=== PATIENT | male | born 1950 | race Caucasian/White ===

== ENCOUNTER 2016-11-27 07:10 | Emergency (ER) | payer OTHER, MEDICAID ==
[2016-11-27 07:21] VITALS: RESP 14; O2SAT 94
--- NOTE | 2016-11-27 07:42 | EDPHY ---
H & P Time Seen by Provider: 11/27/16 07:27 HPI/ROS: CHIEF COMPLAINT: Altered HISTORY OF PRESENT ILLNESS: The patient is a 66-year-old male who is brought to the emergency department by EMS. Per EMS the patient was found down. He was mildly confused. He was placed in a ambulance and became combative. He needs to be restrained. On my evaluation of the patient he has no complaints. He denies significant alcohol use last night. He denies drug use. Patient reports having an old stroke and at baseline he has difficult with gait. He normally uses a cane. He does not currently no rales cane is. REVIEW OF SYSTEMS: My complete review of systems is negative except as mentioned in the HPI. Past Medical/Surgical History: Includes hypertension, CVA, diabetes, hyperlipidemia, bipolar disorder, hypoxia Social History: Homeless Smoking Status: Current every day smoker Physical Exam: Vitals noted GENERAL: No acute distress, alert. HEENT: Eyes normal to inspection, normal pharynx, no signs of dehydration. NECK: No thyromegaly, no lymphadenopathy, supple. RESPIRATORY: Clear to auscultation bilaterally, no rales, rhonchi or wheezing. CVS: Regular rate and rhythm, no rubs, murmurs, or gallops. ABDOMEN: Soft, nontender, nondistended, no organomegaly. BACK: Normal to inspection, no CVA tenderness. SKIN: Normal color, no rash, warm, dry. No pallor. EXTREMITIES: No pedal edema, no calf tenderness, no Homans sign or cords, no joint swelling. NEURO/PSYCH: Alert and oriented x3, normal mood and affect, residual left- sided weakness. Constitutional: Initial Vital Signs Temperature (C) 36.9 C 11/27/16 07:17 Heart Rate 89 11/27/16 07:17 Respiratory Rate 14 11/27/16 07:17 Blood Pressure 121/104 H 11/27/16 07:17 O2 Sat (%) 94 11/27/16 07:17 O2 Delivery Mode Room Air Allergies/Adverse Reactions: No Known Allergies Allergy (Verified 11/27/16 07:16) Home Medications: Medication Instructions Recorded metFORMIN HCL [Glucophage 500 mg 250 mg PO BID 01/06/14 (*)] Aspirin [Aspirin 325 mg (*)] 325 mg PO DAILY #30 tab 02/01/14 Atorvastatin Calcium [Lipitor 40 40 mg PO DAILY #30 tab 02/01/14 mg (*)] Enoxaparin [Lovenox 40 MG (*)] 40 mg SC DAILY #0 syr 02/01/14 Sennosides/Docusate Sodium 1 - 2 tab PO BID PRN #30 tab 02/01/14 [Senokot-S] Medical Decision Making ED Course/Re-evaluation: In the emergency department I took report from the wooden furniture polisher. This time the patient is without complaint. Attempt to ambulate the patient in the emergency department. He normally has his backache which was not brought with him. EMS was contacted to help find his bag. Differential Diagnosis: My differential includes but is not limited to alcohol abuse, drug abuse, CVA, electrolyte abnormality, sugar abnormality, hypertension Departure - Departure Disposition: Home, Routine, Self-Care Clinical Impression: Gait disturbance, post-stroke Alcoholic intoxication Qualifiers: Complication of substance-induced condition: uncomplicated Qualified Code(s): F10.920 - Alcohol use, unspecified with intoxication, uncomplicated Condition: Good Instructions: Alcohol Use Disorder (ED) Additional Instructions: Return with increasing pain, weakness, numbness, headache, or any other concerns. Referrals: Patient,NotPresent [Primary Care Provider] - As per Instructions
[2016-11-27 08:19] VITALS: BP 130/97; PULSE 80; TEMP 97.9
== END 2016-11-27 08:18 | disposition home or self-care (01) ==
LOC: EDUNIT#
DX: R26.9 Unspecified abnormalities of gait and mobility (principal); F10.920 Alcohol use, unspecified with intoxication, uncomplicated; I10 Essential (primary) hypertension; E11.9 Type 2 diabetes mellitus without complications; F17.200 Nicotine dependence, unspecified, uncomplicated; Z79.82 Long term (current) use of aspirin; Z86.73 Personal history of transient ischemic attack (TIA), and cerebral infarction without residual deficits; Z79.84 Long term (current) use of oral hypoglycemic drugs

== ENCOUNTER 2016-11-27 09:42 | Emergency (ER) | payer OTHER, MEDICAID ==
--- NOTE | 2016-11-27 10:07 | EDPHY ---
H & P Time Seen by Provider: 11/27/16 09:55 HPI/ROS: CHIEF COMPLAINT: Balance issues HISTORY OF PRESENT ILLNESS: Patient is a 66-year-old male who returns to the emergency department from the [facility]. He was discharged from the emergency department earlier today. Please refer to my note. On my initial evaluation patient stated he had not been drinking. I discharged him from the emergency department, and due to some confusion, the nurse sent him to the [facility]. Once he arrived to the [facility] he was complaining of issues with his balance and was found to have a negative Breathalyzer. He has some instability secondary to his stroke. He denies new gait issues. He normally uses a cane. He has no new headache. Denies neck pain. He chronically has left-sided weakness and this is unchanged. No nausea or vomiting. Patient states that he did have a fall and struck his left elbow yesterday. He has full range of motion but mild discomfort at the elbow. REVIEW OF SYSTEMS: My complete review of systems is negative except as mentioned in the HPI. Past Medical/Surgical History: Includes hypertension, CVA, alcohol abuse Smoking Status: Current every day smoker Physical Exam: Vitals noted GENERAL: Well-appearing, in no acute distress, alert. HEENT: Eyes normal to inspection, normal pharynx, no signs of dehydration. No head trauma. NECK: No thyromegaly, no lymphadenopathy, supple. C-spine nontender. RESPIRATORY: Clear to auscultation bilaterally, no rales, rhonchi or wheezing. CVS: Regular rate and rhythm, no rubs, murmurs, or gallops. ABDOMEN: Soft, nontender, nondistended, no organomegaly. BACK: Normal to inspection, no CVA tenderness. Spine nontender SKIN: Normal color, no rash, warm, dry. No pallor. EXTREMITIES: The patient has long sleeve shirt removed. He had mild tenderness palpation over his left olecranon process. There is minimal swelling. He has full range of motion of his left upper extremity. Neurovascularly intact distally. (The elbow injury was not mentioned earlier this morning no was not found on exam previously) NEURO/PSYCH: Alert and oriented x3, normal mood and affect, mild left-sided weakness Constitutional: Initial Vital Signs Temperature (C) 36.5 C 11/27/16 09:47 Heart Rate 105 H 11/27/16 09:47 Blood Pressure 120/73 11/27/16 09:47 O2 Sat (%) 93 11/27/16 09:47 O2 Delivery Mode Room Air Allergies/Adverse Reactions: No Known Allergies Allergy (Verified 11/27/16 07:16) Home Medications: Medication Instructions Recorded metFORMIN HCL [Glucophage 500 mg 250 mg PO BID 01/06/14 (*)] Aspirin [Aspirin 325 mg (*)] 325 mg PO DAILY #30 tab 02/01/14 Atorvastatin Calcium [Lipitor 40 40 mg PO DAILY #30 tab 02/01/14 mg (*)] Enoxaparin [Lovenox 40 MG (*)] 40 mg SC DAILY #0 syr 02/01/14 Medical Decision Making - Diagnostics Imaging Results: Imaging Impressions Elbow X-Ray 11/27/16 10:00 Impression: Dorsal soft tissue swelling. ED Course/Re-evaluation: In the emergency department I discussed the plan with the patient. X-ray of his left elbow was ordered. I do not feel the patient needs head CT imaging at this time. Left elbow x-ray: Please refer the dictated report. No fracture dislocation. Dorsal soft tissue swelling. I discussed the results with the patient. I answered all his questions. Patient was given warnings prior to leaving. He will return with worsening symptoms. He was offered a cane but did not want 1. Differential Diagnosis: My differential includes but is not limited to contusion, fracture, subarachnoid hemorrhage, subdural hematoma, epidural hematoma, spinal injury Departure - Departure Disposition: Home, Routine, Self-Care Clinical Impression: Gait disturbance, post-stroke Contusion of elbow, left Qualifiers: Encounter type: initial encounter Qualified Code(s): S50.02XA - Contusion of left elbow, initial encounter Condition: Good Instructions: Contusion in Adults (ED) Referrals: [facility],. [Clinic] - 5-7 days, call for appt.
[2016-11-27 11:25] VITALS: BP 136/94; PULSE 70; RESP 14; TEMP 98.4; O2SAT 94
== END 2016-11-27 11:37 | disposition home or self-care (01) ==
DX: M79.81 Nontraumatic hematoma of soft tissue (principal); R26.9 Unspecified abnormalities of gait and mobility; I10 Essential (primary) hypertension; F17.200 Nicotine dependence, unspecified, uncomplicated; Z79.82 Long term (current) use of aspirin; Z86.73 Personal history of transient ischemic attack (TIA), and cerebral infarction without residual deficits

== ENCOUNTER 2016-11-29 12:38 | Emergency (ER) | payer OTHER, MEDICAID ==
--- NOTE | 2016-11-29 13:01 | EDPHY ---
H & P Time Seen by Provider: 11/29/16 12:50 HPI/ROS: CHIEF COMPLAINT: History of fall, left shoulder pain HISTORY OF PRESENT ILLNESS: 66-year-old male presents to the emergency department by ambulance after he had a fall. The patient states that he fell last night and is not having pain in his left shoulder. He is right-hand dominant. He denies chest pain or difficulty breathing. Denies abdominal pain. He denies neck or back pain. He is having some pain in his left shoulder. Denies pain in his left elbow or wrist. He is also complaining of pain in his left hip. Denies pain in his left knee or ankle. Denies symptoms in the right lower extremity or in his right upper extremity. Patient is status post CVA and has left-sided deficits. He walks unassisted. REVIEW OF SYSTEMS: Constitutional: No fever, no chills. Eyes: No double or blurry vision. ENT: No sore throat. Respiratory: No cough, no shortness of breath. Cardiac: No chest pain. Gastrointestinal: No abdominal pain, vomiting or diarrhea. Genitourinary: No dysuria. Musculoskeletal: No neck or back pain. Skin: No rashes. Neurological: No headache. Past Medical/Surgical History: CVA with left-sided deficits Social History: Homeless Smoking Status: Current every day smoker Physical Exam: General Appearance: Alert, no distress. No visible signs of trauma to his head. He is mentating normally and answering questions appropriately. Eyes: Pupils equal and round. Extraocular motions are all intact. ENT: Mouth: Mucous membranes moist. Respiratory: No wheezing, rhonchi, or rales, lungs are clear to auscultation. Cardiovascular: Regular rate and rhythm. Gastrointestinal: Abdomen is soft and nontender, no masses, no rebound or guarding, bowel sounds normal. Neurological: Alert and oriented x 3, cranial nerves II through XII grossly intact Skin: Warm and dry, no rashes. Musculoskeletal: Nontender to palpate along the cervical, thoracic or lumbar spine. Neck is supple. Extremities: Full range of motion and no peripheral edema. Palpable crepitus over the left clavicle. Nontender. Full range of motion of upper and lower extremities. Normal gait. Psychiatric: Patient is oriented X 3, there is no agitation. Constitutional: Initial Vital Signs Temperature (C) 36.6 C 11/29/16 13:10 Heart Rate 96 11/29/16 13:10 Respiratory Rate 18 11/29/16 13:10 Blood Pressure 147/100 H 11/29/16 13:10 O2 Sat (%) 94 11/29/16 13:10 O2 Delivery Mode Room Air Allergies/Adverse Reactions: No Known Allergies Allergy (Verified 11/27/16 07:16) Home Medications: Medication Instructions Recorded metFORMIN HCL [Glucophage 500 mg 250 mg PO BID 01/06/14 (*)] Aspirin [Aspirin 325 mg (*)] 325 mg PO DAILY #30 tab 02/01/14 Atorvastatin Calcium [Lipitor 40 40 mg PO DAILY #30 tab 02/01/14 mg (*)] Enoxaparin [Lovenox 40 MG (*)] 40 mg SC DAILY #0 syr 02/01/14 Medical Decision Making - Diagnostics Imaging Results: Imaging Impressions Clavicle X-Ray 11/29/16 13:01 Impression: 1. 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 2. Chronic calcific tendinitis seen above the left greater tuberosity. ED Course/Re-evaluation: 66-year-old male presents to the emergency department after she fell yesterday. He has palpable deformity to the left clavicle which is nontender. X-rays reveal old left clavicle fracture with nonunion. This was shown to the patient. The patient thinks that he probably injured his clavicle 6 years ago. The patient has no visible signs of trauma to his head. He is able to ambulate unassisted without difficulty. He is requesting to be discharged to [facility] because his physician is with [facility]. I explained to the patient that he has otherwise been medically cleared. We are waiting assistance from renal case manager to help discharge this patient and arrange appropriate follow-up. I do not think further imaging studies are indicated. His vital signs are stable. I do not think laboratory studies are indicated. Differential Diagnosis: Including but not limited to fracture, dislocation, contusion, sprain Departure - Departure Disposition: Home, Routine, Self-Care Clinical Impression: History of fall Fracture of left clavicle with nonunion Qualifiers: Encounter type: subsequent encounter Clavicle location: shaft Fracture type: closed Fracture alignment: displaced Qualified Code(s): S42.022K - Displaced fracture of shaft of left clavicle, subsequent encounter for fracture with nonunion Condition: Good Instructions: Clavicle Fracture (ED) Additional Instructions: X-rays of your left clavicle reveal an old clavicle fracture that never fully healed. You should follow up with orthopedic surgeon as discussed. Referrals: Qasim Min MD [Medical Doctor] - As per Instructions (Orthopedic surgeon on-call)
[2016-11-29 15:03] VITALS: BP 120/78; PULSE 88; RESP 20; TEMP 98.1; O2SAT 98
== END 2016-11-29 15:03 | disposition home or self-care (01) ==
LOC: EDUNIT#
DX: S42.022A Displaced fracture of shaft of left clavicle, initial encounter for closed fracture (principal); F17.200 Nicotine dependence, unspecified, uncomplicated; Z79.82 Long term (current) use of aspirin; Z86.73 Personal history of transient ischemic attack (TIA), and cerebral infarction without residual deficits; W18.39XA Other fall on same level, initial encounter

== ENCOUNTER 2016-12-07 13:39 | Inpatient (IN) | payer OTHER, MEDICAID ==
--- NOTE | 2016-12-07 14:34 | EDPHY ---
H & P Time Seen by Provider: 12/07/16 13:40 HPI/ROS: Chief complaint. Fall HPI. 66-year-old male here by EMS after falling out of his wheelchair and lying on the sidewalk. He complains of urinary frequency for 1 week. He has been out in the sun without sun protection the last few days and has sunburn and blisters on his legs abdomen and back for the last 2 days. For the last 2 days he has also had cough and congestion. Unknown fever. No shortness of breath and no fever. No abdominal pain vomiting or diarrhea. No injury from the fall from his wheelchair. Patient is an orally controlled diabetic and has been noncompliant with his medication of metformin. He denies drinking alcohol today. He did not strike his head or lose consciousness. He does not have neck pain. ROS Constitutional. Weakness Eyes. no problems with vision ENT. no sore throat, no nasal drainage Cardiovascular. no chest pain Respiratory. no shortness of breath, no cough Abdominal. no abdominal pain, no nausea/vomiting, no diarrhea . no problems urinating MS. no calf pain/swelling, no neck/back pain, no joint pain Skin. Sunburn rash with blistering on knees and ankles as well as back and left side abdomen Lymph. no swollen glands Neuro. Some difficulty walking and patient uses wheelchair though he is able to ambulate Past Medical/Surgical History: Past medical history is significant for collarbone fracture, CVA, diabetes, dyslipidemia, DVT Social History: Homeless, daily smoker, no alcohol Smoking Status: Current every day smoker Physical Exam: General Appearance: Alert well-developed male mild distress vital signs stable Eyes: Pupils equal and round no pallor or injection. ENT, Mouth: Mucous membranes are moist. Respiratory: No retractions. Diffuse inspiratory expiratory rhonchi Cardiovascular: Regular rate and rhythm. Gastrointestinal: Abdomen is soft and nontender, no masses, bowel sounds normal. Neurological: Awake and alert, sensory and motor exams grossly normal. Skin: Sunburn knees legs left abdomen and back with blistering. No evidence for infection however Musculoskeletal: Neck is supple nontender. Extremities symmetrical, full range of motion. Psychiatric: Patient is oriented X 3, there is no agitation. Constitutional: Initial Vital Signs Temperature (C) 36.9 C 12/07/16 13:47 Heart Rate 93 12/07/16 13:47 Respiratory Rate 20 12/07/16 13:47 Blood Pressure 138/75 H 12/07/16 13:47 O2 Sat (%) 93 12/07/16 13:47 O2 Delivery Mode Nasal Cannula O2 (L/minute) 2 Allergies/Adverse Reactions: No Known Allergies Allergy (Verified 11/27/16 07:16) Home Medications: Medication Instructions Recorded metFORMIN HCL [Glucophage 500 mg 250 mg PO BID 01/06/14 (*)] Aspirin [Aspirin 325 mg (*)] 325 mg PO DAILY #30 tab 02/01/14 Atorvastatin Calcium [Lipitor 40 40 mg PO DAILY #30 tab 02/01/14 mg (*)] Enoxaparin [Lovenox 40 MG (*)] 40 mg SC DAILY #0 syr 02/01/14 Medical Decision Making - Diagnostics Imaging Results: Imaging Impressions Chest X-Ray 12/07/16 14:30 Impression: 1. Increased interstitial prominence with possible left basilar consolidation, which could be related to bronchitis and pneumonia, aspiration, progressive interstitial lung disease, or other etiology. 2. Additional findings as above. Chest x-ray reviewed by me shows possible left lower lobe pneumonia Procedures: IV normal saline. Sepsis workup ED Course/Re-evaluation: Severe sepsis declared now. 2nd lactate is also Elevated at 2.5. Patient is given 30 milliliters/kilogram fluid bolus. IV Levaquin after cultures. I have consulted and discussed case with Dr. Kohler, hospitalist, who agrees to the admission Differential Diagnosis: Patient appears to both have pneumonia and urinary tract infection. He has sepsis and is being treated with fluids and antibiotics. He also has sunburn with blistering that does not appear to be infected. Critical Care Time: Critical care time exclusive procedures 45 minutes - Data Points Laboratory Results: Laboratory Results 12/07/16 14:47 12/07/16 14:47 12/07/16 12/07/16 12/07/16 17:05 17:00 14:47 WBC RBC Hgb Hct MCV MCH MCHC RDW Plt Count MPV Neut % (Auto) Lymph % (Auto) [place] % (Auto) Eos % (Auto) Baso % (Auto) Nucleat RBC Rel Count Absolute Neuts (auto) Absolute Lymphs (auto) Absolute Monos (auto) Absolute Eos (auto) Absolute Basos (auto) Absolute Nucleated RBC Immature Gran % Immature Gran # PT 13.9 SEC SEC (12.0-15.0) INR 1.08 (0.83-1.16) APTT 26.1 SEC SEC (23.0-38.0) VBG Lactic Acid 2.5 mmol/L H mmol/L (0.7-2.1) Sodium Potassium Chloride Carbon Dioxide Anion Gap BUN Creatinine Estimated GFR Glucose Calcium Total Bilirubin Urine Color YELLOW Urine Appearance HAZY Urine pH 7.0 (5.0-7.5) Ur Specific [place] 1.010 (1.002-1.030) Urine Protein NEGATIVE (NEGATIVE) Urine Ketones NEGATIVE (NEGATIVE) Urine Blood 1+ H (NEGATIVE) Urine Nitrate POSITIVE H (NEGATIVE) Urine Bilirubin NEGATIVE (NEGATIVE) Urine Urobilinogen NEGATIVE EU EU (0.2-1.0) Ur Leukocyte Esterase TRACE H (NEGATIVE) Urine RBC 3-5 /hpf H /hpf (0-3) Urine WBC 15-25 /hpf H /hpf (0-3) Ur Epithelial Cells NONE SEEN /lpf /lpf (NONE-1+) Urine Mucus TRACE /lpf /lpf (NONE-1+) Urine Glucose 1+ H (NEGATIVE) Ethyl Alcohol 12/07/16 12/07/16 12/07/16 14:47 14:47 14:47 WBC 11.21 10^3/uL H 10^3/uL (3.80-9.50) RBC 4.75 10^6/uL 10^6/uL (4.40-6.38) Hgb 14.3 g/dL g/dL (13.7-17.5) Hct 43.0 % % (40.0-51.0) MCV 90.5 fL fL (81.5-99.8) MCH 30.1 pg pg (27.9-34.1) MCHC 33.3 g/dL g/dL (32.4-36.7) RDW 14.2 % % (11.5-15.2) Plt Count 396 10^3/uL 10^3/uL (150-400) MPV 10.1 fL fL (8.7-11.7) Neut % (Auto) 72.8 % % (39.3-74.2) Lymph % (Auto) 17.2 % % (15.0-45.0) [place] % (Auto) 7.9 % % (4.5-13.0) Eos % (Auto) 1.2 % % (0.6-7.6) Baso % (Auto) 0.5 % % (0.3-1.7) Nucleat RBC Rel Count 0.0 % % (0.0-0.2) Absolute Neuts (auto) 8.14 10^3/uL H 10^3/uL (1.70-6.50) Absolute Lymphs (auto) 1.93 10^3/uL 10^3/uL (1.00-3.00) Absolute Monos (auto) 0.89 10^3/uL H 10^3/uL (0.30-0.80) Absolute Eos (auto) 0.14 10^3/uL 10^3/uL (0.03-0.40) Absolute Basos (auto) 0.06 10^3/uL 10^3/uL (0.02-0.10) Absolute Nucleated RBC 0.00 10^3/uL 10^3/uL (0-0.01) Immature Gran % 0.4 % % (0.0-1.1) Immature Gran # 0.05 10^3/uL 10^3/uL (0.00-0.10) PT INR APTT VBG Lactic Acid 2.2 mmol/L H mmol/L (0.7-2.1) Sodium 139 mEq/L mEq/L (134-144) Potassium 4.2 mEq/L mEq/L (3.5-5.2) Chloride 106 mEq/L mEq/L (97-110) Carbon Dioxide 24 mEq/l mEq/l (22-31) Anion Gap 9 mEq/L mEq/L (8-16) BUN 10 mg/dL mg/dL (7-23) Creatinine 0.8 mg/dL mg/dL (0.7-1.3) Estimated GFR > 60 Glucose 150 mg/dL H mg/dL (70-100) Calcium 9.7 mg/dL mg/dL (8.5-10.4) Total Bilirubin 0.7 mg/dL mg/dL (0.1-1.4) Urine Color Urine Appearance Urine pH Ur Specific [place] Urine Protein Urine Ketones Urine Blood Urine Nitrate Urine Bilirubin Urine Urobilinogen Ur Leukocyte Esterase Urine RBC Urine WBC Ur Epithelial Cells Urine Mucus Urine Glucose Ethyl Alcohol < 10 mg/dL mg/dL (0-10) Medications Given: Discontinued Medications Sodium Chloride (Ns) 2,900 mls @ 5,800 mls/hr 30 ml/kg infuse over 30 min ( 2900 ml) IV EDNOW ONE PRN Reason: Protocol Stop: 12/07/16 15:56 Last Admin: 12/07/16 15:35 Dose: 2,900 mls Departure - Departure Disposition: [facility] In[facility] Acute Clinical Impression: Sepsis Qualifiers: Sepsis type: sepsis due to unspecified organism Qualified Code(s): A41.9 - Sepsis, unspecified organism Pneumonia Qualifiers: Pneumonia type: due to unspecified organism Laterality: left Lung location: lower lobe of lung Qualified Code(s): J18.1 - Lobar pneumonia, unspecified organism Urinary tract infection Qualifiers: Urinary tract infection type: acute cystitis Hematuria presence: without hematuria Qualified Code(s): N30.00 - Acute cystitis without hematuria Condition: Fair Referrals: Patient,NotPresent [Primary Care Provider] - As per Instructions
[2016-12-07 15:05] LABS: % IMMATURE GRANULYOCYTES 0.4 % (0.0-1.1); ABSOLUTE IMMATURE GRANULOCYTES 0.05 10^3/uL (0.00-0.10); ADD DIFF? NO; ADD MORPH? NO; ADD SCAN? NO; ATYPICAL LYMPHOCYTE FLAG 20 (0-99); FRAGMENT RBC FLAG 0 (0-99); HEMOGLOBIN 14.3 g/dL (13.7-17.5); LEFT SHIFT FLG 0 (0-99); LIPEMIA HEMOLYSIS FLAG 80 (0-99); MEAN CELL HEMOGLOBIN 30.1 pg (27.9-34.1); MEAN CELL HEMOGLOBIN CONCENTR. 33.3 g/dL (32.4-36.7); MEAN CELL VOLUME 90.5 fL (81.5-99.8); MEAN PLATELET VOLUME 10.1 fL (8.7-11.7); PLATELET CLUMPS FLAG 0 (0-99); PLATELET COUNT 396 10^3/uL (150-400); RED BLOOD CELL COUNT 4.75 10^6/uL (4.40-6.38); RED CELL DISTRIBUTION WIDTH 14.2 % (11.5-15.2)
[2016-12-07 15:16] LABS: ANION GAP 9 mEq/L (8-16); BILIRUBIN,TOTAL 0.7 mg/dL (0.1-1.4); CALCIUM 9.7 mg/dL (8.5-10.4); CARBON DIOXIDE 24 mEq/l (22-31); CHLORIDE 106 mEq/L (97-110); CREATININE 0.8 mg/dL (0.7-1.3); ETHANOL SERUM < 10 mg/dL (0-10); GLOMERULAR FILTRATION RATE > 60; GLUCOSE 150 mg/dL (70-100); POTASSIUM 4.2 mEq/L (3.5-5.2); SODIUM 139 mEq/L (134-144)
[2016-12-07 15:17] LABS: INR 1.08 (0.83-1.16); PROTIME(PATIENT) 13.9 SEC (12.0-15.0)
[2016-12-07 15:18] LABS: APTT 26.1 SEC (23.0-38.0)
[2016-12-07] MEDS ORDERED: NS 2,900 ML IV ONE (15:27)
[2016-12-07 15:57] LABS: LACGHOST ORDER
[2016-12-07 17:19] LABS: COLOR YELLOW; LEUKOCYTE ESTERASE,URINE TRACE (NEGATIVE); NITRITE,URINE POSITIVE (NEGATIVE)
[2016-12-07 17:24] LABS: MUCUS TRACE /lpf (NONE-1+); WBC,URINE 15-25 /hpf (0-3)
[2016-12-07 18:10] LABS: LACGHOST ORDER
[2016-12-07] MEDS ORDERED: ALBUTEROL 3 ML DEYVIAL IH PRN (19:24)
[2016-12-07] MEDS ORDERED: LORazepam 0.5 MG TAB PO PRN (19:24)
[2016-12-07] MEDS ORDERED: ONDANSETRON 4 MG/2 ML VIAL IVP PRN (19:24)
[2016-12-07] MEDS ORDERED: ONDANSETRON DISINTEGRATING 4 MG TAB PO PRN (19:24)
[2016-12-07] MEDS ORDERED: D50W 25 GM/50 ML SYR IVP PRN (19:28)
[2016-12-07] MEDS ORDERED: NS 1,000 ML IV SCH (19:30)
[2016-12-07] MEDS: IPRATROPIUM/ALBUTEROL 3 ML DEYVIAL IH SCH (20:12)
[2016-12-07] MEDS ORDERED: ALOE VERA TP PRN (20:29)
[2016-12-07 21:48] LABS: TROPONIN I < 0.012 ng/mL (0-0.034)
--- NOTE | 2016-12-07 21:50 | GHP ---
[f rep st] HISTORY AND PHYSICAL DATE OF ADMISSION: 12/07/2016 CHIEF COMPLAINT: Found down. HISTORY: This is a 66-year-old, homeless male, who has a past medical history of hypertension, diab etes, and presume COPD. He is also wheelchair-bound, status post stroke, who was found on the sidew alk outside of [employer], noted to be quite somnolent and with significant blistering sunburn wounds. At the time of my evaluation, the patient is arousable, but quite somnolent still. The majority of this history is therefore obtained by chart review and discussion with ER doc. Apparently, he has b een having cough and shortness of breath for the last several days. He did not think he had a fever . It sounds as if he just fell out of his wheelchair, but without any loss of consciousness or prec eding symptoms. He was unable to get up, however, and was lying on the sidewalk until EMS arrived. He has also been complaining of urinary frequency and urgency. He also noted to the ER that he has been out in the sun, and has not had any sun protection for the last 2 days. PAST MEDICAL HISTORY: 1. 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 2. Hypertension. 3. Diabetes, previously poorly controlled. 4. Presumed COPD. 5. Chronic hypoxia. 6. 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 7. Hyperlipidemia. SOCIAL HISTORY: The patient is a daily smoker. He has stated that he no longer drinks, though he h as had a previous issue with heavy drinking. He is homeless. FAMILY HISTORY: This is reviewed in the chart and is noncontributory. REVIEW OF SYSTEMS: This is unobtainable secondary to patient's somnolence. MEDICATIONS: Metformin. ALLERGIES: No known drug allergies. PHYSICAL EXAMINATION: VITAL SIGNS: BP 144/84, heart rate 93, respiratory rate 26, O2 sats 98% on 2 L, temperature is 37.4. GENERAL APPEARANCE: This is a well-developed male. He is very somnolent, though arousable. EYES: Anicteric. Sclerae are injected. HENT: Poor dentition. Moist mucous m embranes. CARDIOVASCULAR: Regular rate and rhythm. No MRG. PULMONARY: CTA bilaterally to anteri or exam. He was noted to have significant apneic events while I was in the room with him up to 5 se conds, consistent with MARY. ABDOMEN: Obese, soft, nontender, nondistended. EXTREMITIES: No clubb ing, cyanosis, or edema. SKIN: The patient is sunburned with scattered blistering wounds on his lo wer extremities and apparently his back, though I was not able to visualize his back. There is no e vidence of superimposed infection. NEURO/PSYCH: Again, the patient is quite somnolent. However, donovan chapa has been awake and interactive with staff, and is arousable to my exam, though he remains quite so mnolent, falls asleep rather quickly. He, otherwise, appears to be nonfocal neurologically. LABORATORY STUDIES: White blood cell count 11.2, coags are normal, lactic acid 2.2, then 2.5. Chem istry notable for glucose of 150. Urinalysis shows 1+ blood, positive for nitrates, leuk esterase, and 15-25 white blood cells. U tox is negative for alcohol. Chest x-ray showing a left basilar consolidation, question bronchitis, pneumonia aspiration, progres sive interstitial lung disease, or other etiology. That was personally reviewed and interpreted. ASSESSMENT/PLAN: This is a 66-year-old man who presents after falling out of his wheelchair, and un able to get up on the sidewalk outside [employer], with blistering sunburn wounds, and evidence of likel y left lower lobe pneumonia and urinary tract infection, with significant somnolence at the time of my evaluation. 1. Acute encephalopathy. Again, the patient is really minimally arousable at the time of my evalua tion. He did have a fall from wheelchair without any reported injuries, but given my inability real ly to arouse him, I feel the most prudent to obtain a head CT to rule out acute bleed. He does have a history of stroke. Again, he does not appear to be focal neurologically, but difficult evaluatio n. 2. Left lower lobe pneumonia. The chest x-ray was limited by poor inspiratory effort, though he do es appear to have a left basilar consolidation. He will be started on ceftriaxone and azithromycin. Blood cultures have been drawn and are pending. He is hemodynamically stable. 3. Urinary tract infection. He does have evidence of UTI on urinalysis. Urine cultures are pendin g. He will be covered for this with ceftriaxone. 4. Elevated lactate. He has had 2 draws now that have not improved, though they are both minimally elevated. Again, he is hemodynamically stable, but query other reason for more chronic elevation i n lactate level. We will check 1 more, and if no change despite adequate fluid resuscitation and ot her markers being normal, I will stop checking at that point. 5. Diabetes, for which he is only on metformin. Glucose on arrival of 150. We will treat with juli ding scale and obtain a hemoglobin A1c. 6. Leukocytosis without other real signs or symptoms of SIRS. Again, in the setting of presumed in fection as above. 7. Sunburns. The patient does have diffuse sunburns and scattered blistering wounds. We will ask for wound care consult. We will provide topical aloe for the sunburns. In terms of the blisters, w e will await wound care recommendations. Again, nothing appears acutely infected. 8. Inpatient status. The patient will need greater than 48 hours stay for evaluation and managemen t of above. We will need to have PT, OT, and case management involved. 9. The patient is new to my care. Old records reviewed, and summarized as per HPI and past medical history. Care plan reviewed with ER physician, including plans for admission and treatment of like ly pneumonia and UTI. /[id number]/MODL
[2016-12-07 22:04] LABS: PROCALCITONIN 0.11 ng/mL (0.02-0.10)
[2016-12-07] MEDS: NICOTINE 21 MG/24 HR PATCH TD SCH (23:37)
[2016-12-08 05:21] LABS: % IMMATURE GRANULYOCYTES 0.4 % (0.0-1.1); ABSOLUTE IMMATURE GRANULOCYTES 0.04 10^3/uL (0.00-0.10); ADD DIFF? NO; ADD MORPH? NO; ADD SCAN? NO; ATYPICAL LYMPHOCYTE FLAG 20 (0-99); FRAGMENT RBC FLAG 0 (0-99); HEMATOCRIT 38.5 % (40.0-51.0); HEMOGLOBIN 12.7 g/dL (13.7-17.5); LEFT SHIFT FLG 0 (0-99); LIPEMIA HEMOLYSIS FLAG 80 (0-99); MEAN CELL HEMOGLOBIN 30.3 pg (27.9-34.1); MEAN CELL VOLUME 91.9 fL (81.5-99.8); MEAN PLATELET VOLUME 10.3 fL (8.7-11.7); PLATELET CLUMPS FLAG 0 (0-99); PLATELET COUNT 324 10^3/uL (150-400); RED BLOOD CELL COUNT 4.19 10^6/uL (4.40-6.38); RED CELL DISTRIBUTION WIDTH 14.5 % (11.5-15.2)
[2016-12-08 05:40] LABS: POTASSIUM 4.4 mEq/L (3.5-5.2)
[2016-12-08 05:42] LABS: ANION GAP 6 mEq/L (8-16); CALCIUM 8.5 mg/dL (8.5-10.4); CARBON DIOXIDE 25 mEq/l (22-31); CHLORIDE 106 mEq/L (97-110); CREATININE 0.8 mg/dL (0.7-1.3); GLOMERULAR FILTRATION RATE > 60; GLUCOSE 136 mg/dL (70-100); MAGNESIUM 2.1 mg/dL (1.6-2.3); SODIUM 137 mEq/L (134-144)
--- NOTE | 2016-12-08 05:48 | CPEKG ---
Heart Rate: 86 RR Interval: 698 P-R Interval: 128 QRSD Interval: 84 QT Interval: 384 QTC Interval: 460 P Lindsay: 36 QRS Lindsay: 64 T Wave Lindsay: 80 EKG Severity - NORMAL ECG - EKG Impression: SINUS RHYTHM Electronically Signed By: Reji Joya 09-Dec-2016 08:58:45
[2016-12-08 05:51] LABS: TROPONIN I < 0.012 ng/mL (0-0.034)
[2016-12-08] MEDS: IPRATROPIUM/ALBUTEROL 3 ML DEYVIAL IH SCH ×4 (05:52→20:55)
[2016-12-08] MEDS: AZITHROMYCIN IV 500 MG in D5W 250 ML IV SCH (09:16)
[2016-12-08] MEDS: INSULIN LISPRO 100 UNIT/ML SC SCH ×3 (09:16→18:00)
[2016-12-08] MEDS: ENOXAPARIN 40 MG/0.4 ML SYR SC SCH (09:17)
[2016-12-08] MEDS: NICOTINE 21 MG/24 HR PATCH TD SCH (09:28)
--- NOTE | 2016-12-08 14:52 | HOSPPROG ---
Hospitalist Progress Note Assessment/Plan: * Pneumonia -IV ceftriaxone/azithro * Possible UTI * Severe blistering sunburn -wound care * Encephalopathy - unclear baseline -previous heavy etoh - check ammonia -consult [employer] W[employer]ING MACHINES - cognitive eval * h/o CVA with chronic gait instability * HTN * DM II - metformin * COPD/tobacco dependence -nebs Subjective: No new complaints. Objective: Vital Signs Temp Pulse Resp BP Pulse Ox 36.6 C 83 16 138/64 H 95 12/08/16 12:00 12/08/16 12:12 12/08/16 12:12 12/08/16 12:00 12/08/16 12:12 Laboratory Results 12/08/16 03:46 12/08/16 03:46 12/07/16 12/08/16 12/09/16 05:59 05:59 05:59 Intake Total 4840 Output Total 1500 825 Balance 3340 -825 PT 13.9 SEC (12.0-15.0) 12/07/16 14:47 INR 1.08 (0.83-1.16) 12/07/16 14:47 CXR viewed, my personal interpretation is - possible LLL PNA Head CT - old stroke, atrophy, no bleed - Physical Exam Constitutional: no apparent distress, appears nourished, not in pain Cardiovascular: regular rate and rhythym, no murmur, rub, or gallop Respiratory: no respiratory distress, expiratory wheeze, rhonchi, No reduced air movement Gastrointestinal: normoactive bowel sounds, soft, non-tender abdomen, no palpable masses Skin: erythema, other (extensive blistering over knees, blisters still intact), No normal color, No mottled Neurologic: AAOx3, sensation intact bilaterally Psychiatric: interacting appropriately, poor insight, No thought process linear , No agitated ICD10 Worksheet Patient Problems: Problems Problem Status Onset Pneumonia Acute Sepsis Acute Urinary tract infection Acute Alcohol abuse Active Chronic obstructive lung disease Active Nicotine dependence Active Obesity Active Pneumonia Active Stroke Acute 01/06/14
--- NOTE | 2016-12-08 15:36 | WOCRNPDOC ---
LUIS Advanced Assessment Note - Skin Integrity Problem, Advanced Assess Right Ankle Blister Dressing Type: Open to Air Exudate Amount: Scant Exudate Color: Yellow Exudate Characteristic(s): Serous Integumentary Issue Intervention: Dressing Applied (Cavilon protectant, Iodoflex , Adaptic Touch, Mepilex Transfer, 4x4s, clovis wrap. ), Dressing Initialed & Dated Roz Wound Tissue: Erythema, Raw Roz Wound Swelling: Mild Wound Bed Color: Brown, [place], Yellow Wound Bed Constitution: Smooth Tissue, Adhered Slough, Stable Eschar (50%) Wound Edges: Irregular Site Odor: None Site Measurement - Head-to-Toe Length X Width X Depth (cm): 13 x 13 x 0.3 Skin Integrity Problem Comment: Full-thickness sunburn with variegated base: Approx 50% is smooth, raw dermis or subcutaneous tissue with some ragged, peeling epidermis at margin. The other 50% is necrotic tissue ranging from adherent yellow slough to dusky-brown eschar. Patient reports that he opened the blisters "so they could drain," and that all of the arzola "hurt a lot." Encouraged patient to shower prior to wound care, which he did do, with staff assistance. Following his shower, the opened blister sites were cleansed with sterile NS and gauze. Cavilon skin protectant was applied to intact periwound skin, and Iodoflex was placed on slough or eschar in wound bed. Adaptic Touch was placed to secure the Iodoflex sheets, Mepilex Transfer foam and 4x4s were layered over the Adaptic, and dressing was secured with figure-8 wrapping of clovis. KATHYA rBown was present during care. Bilateral Upper Medial Thigh Excoriation Dressing Type: Open to Air Exudate Amount: Minimal Exudate Color: Yellow Exudate Characteristic(s): Serous Integumentary Issue Intervention: Dressing Applied (Cavilon skin protectant, Allevyn), Dressing Initialed & Dated, Barrier Cream Applied (Anti-fungal), Silver Gel Applied Roz Wound Tissue: Erythema Roz Wound Swelling: Mild Wound Bed Color: [place], Red Wound Bed Constitution: Smooth Tissue Wound Edges: Irregular Site Odor: Musky (fungal) Site Measurement - Head-to-Toe Length X Width X Depth (cm): 7 x 9 x 0.3 Skin Integrity Problem Comment: Full-thickness injury of uncertain etiology with bases presenting clean, irregular surfaces. Cleansed with sterile NS and gauze. Cavilon skin protectant was applied to intact periwound skin, Silvasorb gel was applied to wound beds; Allevyn placed to secure and protect. Antifungal moisture barrier cream was applied to scrotum and skin folds of thighs and pannus. Generalized Abdomen Burn Dressing Type: Open to Air Exudate Characteristic(s): None Integumentary Issue Intervention: Lotion/Cream Applied (Skin Repair Cream) Roz Wound Tissue: Erythema Roz Wound Swelling: None Wound Bed Color: [place], Red Wound Bed Constitution: Smooth Tissue Wound Edges: Irregular (peeling) Site Odor: None Skin Integrity Problem Comment: Pt c/o tenderness: Peeling epidermis across abdomen, which appears to be beginning to re-epithelializing. Skin Repair cream applied, which he reports was "soothing." Left Anterior Ankle Burn Dressing Type: Open to Air Exudate Amount: None Integumentary Issue Intervention: Dressing Applied (Cavilon skin protectant, Iodoflex, Adaptic Touch, Allevyn), Dressing Initialed & Dated Roz Wound Tissue: Erythema Roz Wound Swelling: Mild Wound Bed Color: Brown, [place], Red Wound Bed Constitution: Smooth Tissue, Stable Eschar (40%) Wound Edges: Irregular Site Odor: None Site Measurement - Head-to-Toe Length X Width X Depth (cm): 2.5 x 1 x 0.3 Skin Integrity Problem Comment: Full-thickness sunburn with variegated base: Approx 60% is smooth, raw dermis or subcutaneous tissue with some ragged, peeling epidermis at margin. The other 40% is necrotic tissue ranging from adherent yellow slough to dusky-brown eschar. Patient reports that he opened the blisters "so they could drain," and that all of the arzola "hurt a lot." Encouraged patient to shower prior to wound care, which he did do, with staff assistance. Following his shower, the opened blister sites were cleansed with sterile NS and gauze. Cavilon skin protectant was applied to intact periwound skin, and Iodoflex was placed on slough or eschar in wound bed. Adaptic Touch was applied to secure Iodoflex in place; Allevyn was placed to secure and protect. Patient reported improved comfort level following placement of all dressings. Left Lateral Abdomen Burn Dressing Type: Open to Air Exudate Amount: Scant Exudate Color: Yellow Exudate Characteristic(s): Serous Integumentary Issue Intervention: Dressing Applied (Cavilon protectant, Allevyn) , Dressing Initialed & Dated, Silver Gel Applied Roz Wound Tissue: Erythema Wound Bed Color: [place], Yellow (60%) Wound Bed Constitution: Smooth Tissue, Adhered Slough Wound Edges: Attached, Well Defined Site Odor: None Site Measurement - Head-to-Toe Length X Width X Depth (cm): 3 x 1.3 x 0.3 Skin Integrity Problem Comment: Full-thickness sunburn with mixed composition base: smooth, raw dermis and adherent yellow slough. Cleansed with sterile NS and gauze. Cavilon skin protectant was applied to intact periwound skin, Silvasorb gel was applied to slough in wound bed; Allevyn placed to secure and protect. Left Knee Burn Dressing Type: Open to Air Exudate Amount: None Integumentary Issue Intervention: Dressing Applied (Cavilon skin protectant, Adaptic Touch, and Allevyn), Dressing Initialed & Dated Roz Wound Tissue: Erythema, Intact Wound Bed Constitution: Intact Serous Filled Blister Wound Edges: Well Defined Site Odor: None Site Measurement - Head-to-Toe Length X Width X Depth (cm): 7 x 6 x 0.5 roof height Skin Integrity Problem Comment: Encouraged patient to leave blisters intact. Placed Adaptic Touch and Allevyn for protection.
[2016-12-08] MEDS: metFORMIN HCL 500 MG TAB PO SCH (17:59)
[2016-12-08] MEDS: oxyCODONE IR 5 MG TAB PO PRN ×2 (20:18→22:59)
[2016-12-08] MEDS: NICOTINE POLACRILEX 2 MG GUM B PRN ×2 (20:19→22:59)
[2016-12-09] MEDS: oxyCODONE IR 5 MG TAB PO PRN ×3 (02:29→17:35)
[2016-12-09 04:15] LABS: % IMMATURE GRANULYOCYTES 0.8 % (0.0-1.1); ABSOLUTE IMMATURE GRANULOCYTES 0.07 10^3/uL (0.00-0.10); ADD DIFF? NO; ADD MORPH? NO; ADD SCAN? NO; ATYPICAL LYMPHOCYTE FLAG 20 (0-99); FRAGMENT RBC FLAG 0 (0-99); HEMATOCRIT 39.2 % (40.0-51.0); HEMOGLOBIN 12.9 g/dL (13.7-17.5); LEFT SHIFT FLG 0 (0-99); LIPEMIA HEMOLYSIS FLAG 80 (0-99); MEAN CELL HEMOGLOBIN 30.3 pg (27.9-34.1); MEAN CELL HEMOGLOBIN CONCENTR. 32.9 g/dL (32.4-36.7); MEAN PLATELET VOLUME 9.6 fL (8.7-11.7); PLATELET CLUMPS FLAG 0 (0-99); PLATELET COUNT 305 10^3/uL (150-400); RED BLOOD CELL COUNT 4.26 10^6/uL (4.40-6.38)
[2016-12-09 04:18] LABS: ALANINE AMINOTRANSFERASE 42 IU/L (21-72); ALBUMIN 2.5 g/dL (3.5-5.0); ALKALINE PHOSPHATASE 55 IU/L (38-126); ANION GAP 6 mEq/L (8-16); ASPARTATE AMINOTRANSFERASE 26 IU/L (17-59); BILIRUBIN,TOTAL 0.7 mg/dL (0.1-1.4); BILIRUBIN-CONJUGATED 0.5 mg/dL (0.0-0.5); BILIRUBIN-UNCONJUGATED 0.2 mg/dL (0.0-1.1); CALCIUM 8.4 mg/dL (8.5-10.4); CARBON DIOXIDE 25 mEq/l (22-31); CHLORIDE 103 mEq/L (97-110); CREATININE 0.8 mg/dL (0.7-1.3); GLOMERULAR FILTRATION RATE > 60; GLUCOSE 145 mg/dL (70-100); POTASSIUM 4.3 mEq/L (3.5-5.2); SODIUM 134 mEq/L (134-144); TOTAL PROTEIN 5.3 g/dL (6.3-8.2)
[2016-12-09] MEDS: IPRATROPIUM/ALBUTEROL 3 ML DEYVIAL IH SCH ×4 (06:09→20:29)
[2016-12-09] MEDS: INSULIN LISPRO 100 UNIT/ML SC SCH ×3 (07:50→17:37)
[2016-12-09] MEDS: ENOXAPARIN 40 MG/0.4 ML SYR SC SCH (07:51)
[2016-12-09] MEDS: NICOTINE 21 MG/24 HR PATCH TD SCH (07:52)
[2016-12-09] MEDS: AZITHROMYCIN IV 500 MG in D5W 250 ML IV SCH (07:53)
[2016-12-09] MEDS: metFORMIN HCL 500 MG TAB PO SCH ×2 (07:53→17:37)
--- NOTE | 2016-12-09 11:12 | HOSPPROG ---
Hospitalist Progress Note Assessment/Plan: 66 yo M w dm, h/o cva here w possible LLL pna, encephalopathy LL pna: repeat cxr in AM on ceftriaxone/azithro ?UTI: has pyuria, sx and + Ucx improved, even though antibiotic therapy not ideal boil: lanced at bedside elevated tsh: follow up in 6 weeks sunburn: appreciate wound care eval dm: metformin and lispro ss dispo: inpt, suspect will dc 12/10 Subjective: alert. appears less encephalopathic (new to me today). admit cxr w possible LLL infiltrate (interp by me). c/o boil on back Objective: Vital Signs Temp Pulse Resp BP Pulse Ox 36.6 C 90 20 90/52 L 96 12/09/16 03:31 12/09/16 10:42 12/09/16 10:42 12/09/16 03:31 12/09/16 10:42 Laboratory Results 12/09/16 03:54 12/09/16 03:54 12/08/16 12/09/16 12/10/16 05:59 05:59 05:59 Intake Total 4840 850 240 Output Total 1500 2400 325 Balance 3340 -1550 -85 PT 13.9 SEC (12.0-15.0) 12/07/16 14:47 INR 1.08 (0.83-1.16) 12/07/16 14:47 - Physical Exam Constitutional: no apparent distress, appears nourished Eyes: PERRL, anicteric sclera Ears, Nose, Mouth, Throat: moist mucous membranes, hearing normal Cardiovascular: regular rate and rhythym, no murmur, rub, or gallop, No tachycardia Respiratory: no respiratory distress, no rales or rhonchi, other (crackles at bases) Gastrointestinal: normoactive bowel sounds, soft, non-tender abdomen Genitourinary: no bladder fullness, No wake[place] in urethra Skin: other (sever sunburn on feet, trunk. 2 cm fluctuant mass medial to inferior R scapula) Musculoskeletal: full muscle strength, no muscle tenderness Neurologic: sensation intact bilaterally ICD10 Worksheet Patient Problems: Problems Problem Status Onset Pneumonia Acute Sepsis Acute Urinary tract infection Acute Alcohol abuse Active Chronic obstructive lung disease Active Nicotine dependence Active Obesity Active Pneumonia Active Stroke Acute 01/06/14
[2016-12-09] MEDS ORDERED: EPINEPHRINE MISC ONE (11:30)
[2016-12-09] MEDS ORDERED: LIDOCAINE HCL MISC ONE (11:30)
[2016-12-09] MEDS: ACETAMINOPHEN 325 MG TAB PO PRN (17:37)
[2016-12-10] MEDS: IPRATROPIUM/ALBUTEROL 3 ML DEYVIAL IH SCH ×3 (05:12→15:28)
[2016-12-10] MEDS: oxyCODONE IR 5 MG TAB PO PRN (05:45)
[2016-12-10] MEDS: ACETAMINOPHEN 325 MG TAB PO PRN (05:45)
[2016-12-10 08:04] VITALS: BP 126/69; PULSE 87; RESP 18; TEMP 98
[2016-12-10] MEDS: metFORMIN HCL 500 MG TAB PO SCH (08:07)
[2016-12-10] MEDS: INSULIN LISPRO 100 UNIT/ML SC SCH ×2 (08:07→12:17)
[2016-12-10] MEDS: ENOXAPARIN 40 MG/0.4 ML SYR SC SCH (08:07)
[2016-12-10] MEDS: NICOTINE 21 MG/24 HR PATCH TD SCH (08:13)
[2016-12-10] MEDS: AZITHROMYCIN IV 500 MG in D5W 250 ML IV SCH (09:22)
[2016-12-10 10:43] VITALS: O2SAT 94
--- NOTE | 2016-12-10 11:55 | PDIAF ---
- Diagnosis Diagnosis: sunburn, pneumonia Code Status: Full Code - Medication Management Discharge Medications: Medications to Continue on Transfer metFORMIN HCL [Glucophage 500 mg (*)] 500 mg PO BIDMEAL 01/06/14 [Last Taken 10:20] Albuterol [Proventil Neb] 3 ml IH Q2HRS PRN #0 deyvial 12/10/16 [Last Taken Unknown] Aloe Vera [Aloe Vera Gel (OTC)] 1 tamia TP PRN PRN #0 gel 12/10/16 [Last Taken Unknown] Nicotine Polacrilex [Nicorette gum (*)] 2 mg B Q1HR PRN #0 gum 12/10/16 [Last Taken Unknown] Nicotine [Nicoderm Cq 21 mg (*)] 21 mg TD DAILY patch 12/10/16 [Last Taken Unknown] levOFLOXACIN [levAQUIN (*)] 750 mg PO DAILY #4 tab 12/10/16 [Last Taken Unknown] Discharge Medications: Refer to the Discharge Home Medication list for PRN reason. - Orders Services needed: Registered Nurse, Certified Spray Gun Sizer, Physical Therapy, Occupational Therapy Diet Texture: Regular Texture Diet, Thin Liquids, Meds Whole w/Liquids Wound Care Instructions: Dressing changes every 2 days and as needed for non- intact dressing(s). 1. May wash the peeling, partial-thickness areas in shower. Clean the full thickness wounds gently using sterile NS and gauze. 2. Apply Silvasorb gel to wound beds, except for the right foot: Apply Iodosorb gel to the eschar of the right foot and cover the gel with Adaptic Touch. 3. Cover all open wounds with Allevyn or similar (e.g. Mepilex) border dressings. 4. Apply Skin Repair Cream twice daily to the peeling partial-thickness areas. - Follow Up Care Current Providers and Referrals: Patient,NotPresent [Primary Care Provider] - As per Instructions
--- NOTE | 2016-12-10 12:23 | HOSPPROG ---
Hospitalist Progress Note Assessment/Plan: 66 yo M w dm, h/o cva here w possible LLL pna, encephalopathy LL pna:complete 7 days abx ?UTI: has pyuria, sx and + Ucx improved, even though antibiotic therapy not ideal boil: lanced at bedside c/d/i today was likely sebaceous cyst elevated tsh: follow up in 6 weeks sunburn: appreciate wound care eval dm: metformin and lispro ss dispo: to [facility] today Subjective: relucutant for dc but ultimately amenable Objective: Vital Signs Temp Pulse Resp BP Pulse Ox 36.7 C 87 18 126/69 H 94 12/10/16 08:03 12/10/16 10:33 12/10/16 10:33 12/10/16 08:03 12/10/16 10:33 Laboratory Results 12/09/16 03:54 12/09/16 03:54 12/09/16 12/10/16 12/11/16 05:59 05:59 05:59 Intake Total 850 2280 800 Output Total 2400 3525 950 Balance -1550 -1245 -150 PT 13.9 SEC (12.0-15.0) 12/07/16 14:47 INR 1.08 (0.83-1.16) 12/07/16 14:47 - Physical Exam Constitutional: no apparent distress, appears nourished Eyes: PERRL, anicteric sclera Ears, Nose, Mouth, Throat: moist mucous membranes, hearing normal Cardiovascular: regular rate and rhythym, no murmur, rub, or gallop Respiratory: no respiratory distress, no rales or rhonchi Gastrointestinal: normoactive bowel sounds, soft, non-tender abdomen Genitourinary: no bladder fullness, No [place] in urethra Skin: warm, normal color Musculoskeletal: full muscle strength, no muscle tenderness Neurologic: AAOx3 ICD10 Worksheet Patient Problems: Problems Problem Status Onset Pneumonia Acute Sepsis Acute Urinary tract infection Acute Alcohol abuse Active Chronic obstructive lung disease Active Nicotine dependence Active Obesity Active Pneumonia Active Stroke Acute 01/06/14
--- NOTE | 2016-12-10 13:38 | WOCRNPDOC ---
LUIS Advanced Assessment Note - Skin Integrity Problem, Advanced Assess Right Ankle Burn Dressing Type: Gauze, Dick Dressing Description: Not Intact, Shadowed Exudate Amount: Moderate Exudate Color: Yellow, Red Exudate Characteristic(s): Serosanguinous Integumentary Issue Intervention: Dressing Applied (Cavilon skin protectant to periwound, Iodosorb gel to wound bed, Adaptic Touch and Allevyn), Dressing Initialed & Dated Roz Wound Tissue: Erythema, Intact, Painful/Tender Roz Wound Swelling: Mild Wound Bed Color: Brown, [place], Red, Yellow Wound Bed Constitution: Granulation Tissue, Smooth Tissue, Mixed Loose & Adhered Slough/Eschar (40-45% of entire base) Wound Edges: Epithelizing, Irregular Site Odor: None Skin Integrity Problem Comment: Area of full-thickness burn shows clearer, apparatus cleaner margins than observed on 12/08, and loosening of some of the moist yellow slough on the perimeters of the sections of dark brown eschar. Patient is preparing for DC to [facility] today for Rehab and strengthening, therefore have modified dressing change orders to accordingly. Replaced prior dressing with Iodosorb gel in place of Iodoflex for debridement, continuing Adaptic Touch and changing to Allevyn Life for a cover dressing. Discussed with patient. Report to Dr. Moser and Emili, RN Left Anterior Ankle Burn Dressing Type: Allevyn Life Dressing Description: Clean/Dry, Intact Generalized Abdomen Burn Dressing Type: Open to Air Exudate Amount: None Left Lateral Abdomen Burn Dressing Type: Allevyn Life Dressing Description: Clean/Dry, Intact Left Knee Burn Dressing Type: Allevyn Life Dressing Description: Clean/Dry, Intact
--- NOTE | 2016-12-10 19:16 | GDS ---
[f rep st] DISCHARGE SUMMARY DISCHARGE DIAGNOSES: 1. Encephalopathy, felt secondary to volume depletion, chronic alcohol use, sunburn. 2. History of cerebrovascular accident, involving the right basal ganglia and internal capsule, wit h gait instability, for which he uses a wheelchair. 3. Severe sunburn. 4. Sebaceous cyst on his back, status post incision and drainage. 5. Chronic hypoxia. 6. Suspect a community-acquired pneumonia. 7. Diabetes. 8. Presumed chronic obstructive pulmonary disease. HOSPITAL COURSE: Please see admission history and physical by Dr. Mariya Mullins. The patient was brought on the evening of the after being found down out of his wheelchair, and very sunburned in front of [employer]. He had a chest x-ray suggestive of pneumonia, for which he was started on anti biotics. The patient received antibiotics and local wound care. He had an elevated lactic acid yue t rapidly cleared with volume resuscitation. He had a hemoglobin A1c of 8. He had a sebaceous cyst drained. He was seen by Wound Care every day , and has a plan for wound care. He had negative troponins. No events on telemetry. He had a mode stly elevated TSH, for which a repeat is recommended in 6 weeks, which should be about January 21. DISPOSITION: The patient is discharged to [facility] with wound care, to complete a 7-day course of antibiotics for suspected community-acquired pneumonia. /[id number]/MODL
== END 2016-12-10 16:22 | DRG 193 ==
LOC: EDUNIT# → F2W 18:28
PROVIDERS: ADMIT Internal Medicine; ATTEND Internal Medicine
PROC: 0H96XZZ Drainage of Back Skin, External Approach (ICD-10-PCS; principal; 2016-12-10)
DX: J18.9 Pneumonia, unspecified organism (principal); G93.40 Encephalopathy, unspecified; N39.0 Urinary tract infection, site not specified; E11.9 Type 2 diabetes mellitus without complications; R09.02 Hypoxemia; L72.3 Sebaceous cyst; L55.9 Sunburn, unspecified; Z91.14 Patient's other noncompliance with medication regimen; I10 Essential (primary) hypertension; J44.9 Chronic obstructive pulmonary disease, unspecified; E78.5 Hyperlipidemia, unspecified; F17.210 Nicotine dependence, cigarettes, uncomplicated; F10.21 Alcohol dependence, in remission; I69.398 Other sequelae of cerebral infarction; R26.89 Other abnormalities of gait and mobility; Z99.3 Dependence on wheelchair
CPT/HCPCS: 92523-GN; 92610-GN; 96365; 97162-GP; 97166-GO; 97530-GO; 97530-GP; 97535-GO; G0480; G8978-GP-CK; G8979-GP-CI; G8987-GO-CK; G8988-GO-CI; J0456; J0696; J1650; J1815; J1956

== ENCOUNTER 2017-01-17 18:18 | Emergency (ER) | payer OTHER, MEDICAID ==
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
[2017-01-17 18:30] VITALS: BP 117/88; PULSE 99; RESP 17; TEMP 98.2; O2SAT 92
== END 2017-01-17 18:43 | disposition home or self-care (01) ==
LOC: EDUNIT#
DX: E11.65 Type 2 diabetes mellitus with hyperglycemia (principal); I10 Essential (primary) hypertension; F17.200 Nicotine dependence, unspecified, uncomplicated; Z86.73 Personal history of transient ischemic attack (TIA), and cerebral infarction without residual deficits; Y04.0XXA Assault by unarmed brawl or fight, initial encounter

== ENCOUNTER 2017-08-24 07:43 | Emergency (ER) | payer MEDICAID, OTHER ==
[2017-08-24 07:51] VITALS: BP 145/85; PULSE 80; RESP 16; TEMP 98.2; O2SAT 94
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
== END 2017-08-24 08:45 | disposition home or self-care (01) ==
LOC: EDBD → EDUNIT#
DX: B86 Scabies (principal); G62.9 Polyneuropathy, unspecified; E11.9 Type 2 diabetes mellitus without complications; F17.200 Nicotine dependence, unspecified, uncomplicated; Z79.84 Long term (current) use of oral hypoglycemic drugs

== ENCOUNTER 2017-12-20 15:28 | Emergency (ER) | payer OTHER ==
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
[2017-12-20 15:43] VITALS: BP 132/84
[2017-12-20] MEDS ORDERED: CHLORDIAZEPOXIDE 25MG PREPK#6 BTL TAKEHOME ONE ×2 (15:52→16:14)
== END 2017-12-20 16:15 ==
LOC: EDUNIT#
DX: F10.129 Alcohol abuse with intoxication, unspecified (principal)

== ENCOUNTER 2017-12-26 20:46 | Emergency (ER) | payer OTHER ==
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
[2017-12-26 20:54] VITALS: BP 120/83
== END 2017-12-26 21:32 | disposition home or self-care (01) ==
LOC: EDUNIT#
DX: F10.129 Alcohol abuse with intoxication, unspecified (principal); E11.9 Type 2 diabetes mellitus without complications; Z79.84 Long term (current) use of oral hypoglycemic drugs

== ENCOUNTER 2018-04-01 07:40 | Emergency (ER) | payer OTHER ==
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
[2018-04-01 07:55] VITALS: BP 123/78
== END 2018-04-01 08:48 | disposition home or self-care (01) ==
LOC: EDUNIT#
DX: F10.10 Alcohol abuse, uncomplicated (principal); Z76.5 Malingerer [conscious simulation]

== ENCOUNTER 2018-05-28 18:42 | Emergency (ER) | payer OTHER ==
[2018-05-28 18:46] VITALS: BP 134/81
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
[2018-05-28] MEDS ORDERED: ACETAMINOPHEN 500 MG TAB PO ONE (18:48)
== END 2018-05-28 19:00 | disposition home or self-care (01) ==
LOC: EDUNIT# → EEVIPCON 18:42
DX: S09.90XA Unspecified injury of head, initial encounter (principal); W01.198A Fall on same level from slipping, tripping and stumbling with subsequent striking against other object, initial encounter; I10 Essential (primary) hypertension; Z86.73 Personal history of transient ischemic attack (TIA), and cerebral infarction without residual deficits

== ENCOUNTER 2018-12-21 12:37 | Emergency (ER) | payer OTHER | END 2018-12-21 14:27 | disposition home or self-care (01) ==